=== PATIENT | female | born 1945 | race Caucasian/White ===

== ENCOUNTER 2022-06-27 20:56 | Emergency (ER) | payer BC ==
[~2022-06-27] VITALS: Ht 157.5 cm; Wt 52.2 kg
[2022-06-27] MEDS ORDERED: IV NS 0.9% 1,000 ML BAG IV ONE (21:30)
--- NOTE | 2022-06-27 21:37 | NUR ---
EMT AT BEDSIDE FOR EKG
--- NOTE | 2022-06-27 21:37 | NUR ---
20G IV ESTABSLISHED AT . PHLEB AT BEDSIDE FOR BLOOD DRAW.
[2022-06-27 22:33] LABS: CALCIUM, SERUM 9.7 mg/dL (8.5-10.1); CARBON DIOXIDE 28 mmol/L (21-32); CHLORIDE 102 mmol/L (98-107); CREATININE 1.1 mg/dL (0.6-1.3); GLUCOSE 112 mg/dL (74-106); POTASSIUM 4.4 mmol/L (3.5-5.1); SODIUM SERUM 138 mmol/L (136-145); UREA NITROGEN, BLOOD 17 mg/dL (7-18)
[2022-06-27 22:38] LABS: ALANINE AMINOTRANSFERASE 21 U/L (12-78); ALBUMIN 3.8 g/dL (3.4-5.0); ALKALINE PHOSPHATASE 98 U/L (46-116); ASPARTATE AMINOTRANSFERASE 19 U/L (15-37); BILIRUBIN,DIRECT 0.1 mg/dL (0.0-0.2); BILIRUBIN,TOTAL 0.4 mg/dL (0.2-1.0); LIPASE 44 U/L (73-393); TOTAL PROTEIN, SERUM 7.4 g/dL (6.4-8.2)
[2022-06-27 23:10] LABS: BASOPHILS % (AUTO) 0.7 % (0.0-2.0); EOSINOPHILS % (AUTO) 0.5 % (0.0-6.0); HEMATOCRIT 33 % (33-45); HEMOGLOBIN 11.2 g/dL (11.5-14.8); LYMPHOCYTES # (AUTO) 2.2 K/uL (0.8-4.8); LYMPHOCYTES % (AUTO) 38.6 % (20.0-44.0); MEAN CORPUSCULAR HGB CONC 34 g/dl (31.0-36.0); MEAN CORPUSCULAR VOLUME 84 fL (82-100); MONOCYTES # (AUTO) 0.4 K/uL (0.1-1.30); MONOCYTES % (AUTO) 7.4 % (2.0-12.0); NEUTROPHILS % (AUTO) 52.8 % (43.0-81.0); PLATELET COUNT (AUTO) 229 K/uL (150-450); RED BLOOD CELL COUNT(AUTO) 3.95 MIL/uL (4.0-5.2); WHITE BLOOD COUNT (AUTO) 5.7 K/uL (4.3-11.0)
--- NOTE | 2022-06-28 00:05 | NUR ---
URINE COLLECTED AND SENT TO LAB
[2022-06-28 00:44] LABS: BILIRUBIN,URINE NEGATIVE (NEGATIVE); COLOR,URINE YELLOW (YELLOW); LEUKOCYTE ESTERASE ,URINE NEGATIVE (NEGATIVE); NITRITE, URINE NEGATIVE (NEGATIVE); PH,URINE 7.5 (5.0-8.0); PROTEIN,URINE NEGATIVE (NEGATIVE); UGLUCOSE NEGATIVE (NEGATIVE)
--- NOTE | 2022-06-28 02:32 | NUR ---
[facility] CALLED FOR BLS GOING BACK TO [facility] ETA 30 MIN
--- NOTE | 2022-06-28 03:06 | NUR ---
REPORT GIVEN TO [facility]
--- NOTE | 2022-06-28 03:15 | NUR ---
PT PICKED UP EMS AT BEDSIDE
[2022-06-28 03:23] VITALS: BP 117/62
== END 2022-06-28 03:24 ==
LOC: ER 21:00
DX: S42.031A Displaced fracture of lateral end of right clavicle, initial encounter for closed fracture (principal); R10.30 Lower abdominal pain, unspecified; I10 Essential (primary) hypertension; I48.91 Unspecified atrial fibrillation; X58.XXXA Exposure to other specified factors, initial encounter; Y93.89 Activity, other specified; Y92.89 Other specified places as the place of occurrence of the external cause; Y99.8 Other external cause status
CPT/HCPCS: 99285; 74176; 96360; 71045; 93005; 85025; 80048; 87040 ×2; 83605; 83690; 80076; 83735; 36415; 84484; 81003; J7030 ×2; J7060